=== PATIENT | male | born 2000 | race Caucasian/White ===

== ENCOUNTER 2021-07-16 20:15 | Emergency (ER) | payer SELFPAY ==
[~2021-07-16] VITALS: Ht 182.9 cm; Wt 138.0 kg
[2021-07-16 23:46] LABS: HEMATOCRIT 53.5 % (39.0-50.0); HEMOGLOBIN 18.1 g/dl (14.0-18.0); IMMATURE GRANULOCYTES 0.1 % (0.0-5.0); MEAN CELL VOLUME 87.3 fL CALC (80.0-100.0); MEAN CORPUSCULAR HGB 29.5 pG CALC (26.0-32.0); MEAN CORPUSCULAR HGB CONC 33.8 g/dL CAL (32.0-36.0); NEUT# 13.19 thou/uL (1.82-7.42); RED BLOOD COUNT 6.13 mill/uL (4.70-6.10)
[2021-07-16 23:48] LABS: URINE BILIRUBIN - DIPSTICK NEGATIVE (NEGATIVE); URINE BLOOD DIPSTICK TRACE-INTACT (NEGATIVE); URINE COLOR YELLOW; URINE GLUCOSE - DIPSTICK NEGATIVE (NEGATIVE); URINE KETONE NEGATIVE (NEGATIVE); URINE LEUK ESTERASE NEGATIVE (NEGATIVE); URINE PROTEIN - DIPSTICK NEGATIVE (NEG-TRACE); URINE SPECIFIC GRAVITY 1.025; URINE UROBILINOGEN - DIPSTICK 0.2 E.U./dL (0.2)
[2021-07-16 23:49] LABS: URINE NITRITE - DIPSTICK NEGATIVE (Negative)
[2021-07-17 00:01] LABS: ALBUMIN 4.7 g/dL (3.2-5.0); ALKALINE PHOSPHATASE 94 u/l (38-126); AMYLASE 67 u/l (30-110); ANION GAP 15 (6-22 (CALC)); BILIRUBIN, TOTAL 0.6 mg/dL (0.0-1.4); BUN 19 mg/dL (9-20); BUN/CREATININE RATIO 18 (12-20 (CALC)); CARBON DIOXIDE 25 mmol/l (22-30); CHLORIDE 104 mmol/l (95-108); CREATININE 1.1 mg/dL (0.7-1.3); ETHYL ALCOHOL 0 mg/dl (0-30); GFR > 60 ML/MIN (>=60 (CALC)); GFR FOR AFR.AMER. > 60 ML/MIN (>=60 (CALC)); LIPASE 71 u/l (23-300); SGOT/AST 41 u/l (17-59); SODIUM 139 mmol/l (137-146); TOTAL PROTEIN 9.2 g/dL (6.3-8.2)
[2021-07-17] MEDS ORDERED: ULTRAM50 MG PO (00:18)
[2021-07-17] MEDS ORDERED: ZOFRAN4 MG/TAB PO (00:18)
[2021-07-17] MEDS ORDERED: PROTONIX40 M2 PO (00:18)
[2021-07-17 01:45] VITALS: BP 138/78
== END 2021-07-17 01:45 | disposition home or self-care (01) | DRG 392 ==
LOC: ED 20:15
DX: K29.70 Gastritis, unspecified, without bleeding (principal); Z20.822 Contact with and (suspected) exposure to COVID-19
CPT/HCPCS: S0164

== ENCOUNTER 2022-05-25 19:04 | Emergency (ER) | payer OTHER ==
[2022-05-25] VITALS (8 sets, daily range): BP systolic 132–156; BP diastolic 71–93
[~2022-05-25] VITALS: Ht 182.9 cm; Wt 141.8 kg
[~2022-05-25 19:04] MED LIST: PROTONIX40 M2 PO; ULTRAM50 MG PO; ZOFRAN4 MG/TAB PO
== END 2022-05-25 21:14 | disposition home or self-care (01) | DRG 563 ==
LOC: ED 19:04
DX: S52.122A Displaced fracture of head of left radius, initial encounter for closed fracture (principal); V43.52XA Car driver injured in collision with other type car in traffic accident, initial encounter